=== PATIENT | female | born 1960 | race African-American/Black ===

== ENCOUNTER 2024-11-19 09:01 | Emergency (ER) | payer MEDICAID ==
[~2024-11-19] VITALS: Ht 154.9 cm; Wt 59.0 kg
[2024-11-19] MEDS: SODIUM CHLORIDE 0.9% 1,000 ML IV ONE (10:06)
[2024-11-19 10:13] LABS: BASOPHILS % 1.7 % (0.0-2.0); EOSINOPHILS % 1.5 % (0.0-5.0); HEMATOCRIT. 41.9 % (36.0-48.0); HEMOGLOBIN. 13.6 g/dL (12.0-16.0); LYMPHOCYTES % 43.4 % (20.0-50.0); MEAN PLATELET VOLUME 7.2 fl (7.4-10.4); MONOCYTES % 9.0 % (2.0-8.0); NEUTROPHILS % 44.4 % (40.0-76.0); PLATELET 268 x1000/uL (130-400); RED BLOOD CELL COUNT 4.96 mill/uL (4.2-5.4); RED CELL DISTRIBUTION WIDTH 15.6 % (11.6-14.6)
[2024-11-19] MEDS: METHYLPREDNISOLONE SOD SUCC 125MG/2ML (ACT-O-VIAL) IV ONE (10:19)
[2024-11-19] MEDS: MORPHINE SULFATE 4 MG/ML INJ (FOR IV/IM USE) IV ONE (10:19)
[2024-11-19] MEDS: KETOROLAC 15MG/ML VIAL IV ONE (10:20)
[2024-11-19 10:21] LABS: CREATININE 0.7 mg/dL (0.6-1.0)
[2024-11-19 10:22] LABS: ETHANOL BLOOD < 10 mg/dL (<10); UREA NITROGEN BLOOD 9 mg/dL (9-23)
[2024-11-19 10:23] LABS: ASPARTATE AMINOTRANSFERASE 17 IU/L (<34)
[2024-11-19 10:24] LABS: BILIRUBIN DIRECT 0.1 mg/dL (<=3.0); BILIRUBIN TOTAL 0.5 mg/dL (0.1-1.0); PROTEIN TOTAL 6.5 g/dL (6.0-8.3)
[2024-11-19 10:28] LABS: INR 1.0
[2024-11-19] MEDS: IPRATROPIUM BROMIDE (0.02%) 0.5MG/2.5ML NEB HHN SCH (10:31)
[2024-11-19] MEDS: ALBUTEROL (0.083%) 2.5MG/3ML NEB HHN SCH (10:31)
[2024-11-19 10:34] VITALS: PULSE 76; RESP 20; O2SAT 98
[2024-11-19] MEDS ORDERED: ALBU90AE INH (12:15)
[2024-11-19] MEDS ORDERED: P50 MT (12:15)
[2024-11-19 12:50] VITALS: BP 123/86; PULSE 72; RESP 22; TEMP 36.4; O2SAT 99
== END 2024-11-19 13:17 | disposition home or self-care (01) ==
LOC: ER 09:01
DX: J44.1 Chronic obstructive pulmonary disease with (acute) exacerbation (principal); F17.200 Nicotine dependence, unspecified, uncomplicated
CPT/HCPCS: 80076; 80048; 80320; 83690; 85025; 85610; 36415; 71045; 94640; 93005; 96361; 96374; 96375; 99291; J1885; J2919; J2270; Z7610 ×2; J7030; 94070; A4565; A4606; G0480